=== PATIENT | female | born 1965 | race Two or more races ===

== ENCOUNTER 2018-06-16 20:31 | Emergency (ER) | payer MEDICAID, OTHER ==
[2018-06-16] MEDS ORDERED: NORMAL SALINE 1000 ML 1,000 ML IV ONE (20:53)
--- NOTE | 2018-06-16 20:56 | ER Document Report ---
ED General - General Stated Complaint: POSSIBLE INGESTION Time Seen by Provider: 06/16/18 20:45 Notes: Patient is a 53-year-old female comes emergency department for chief complaint of accidental ingestion. She comes by EMS, given Zofran and IV fluids. 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 She vomited 4 times. Patient states that otherwise she feels okay, she denies any areas of pain, denies chest pain, shortness of breath. She states that before eating the cookies she felt fine, denies any fevers, chills, or any other symptoms. Past medical history of type 2 diabetes, on metformin, no other medical history reported. Daughter Nicolasa at bedside, patient primarily [place]-speaking, patient requesting daughter to translate. - Related Data Allergies/Adverse Reactions: No Known Allergies Allergy (Unverified 06/16/18 21:51) Past Medical History - General Information source: Patient - Social History Smoking Status: Never Smoker Frequency of alcohol use: None Drug Abuse: None Lives with: Family Family History: Reviewed & Not Pertinent Endocrine Medical History: Reports: Hx Diabetes Mellitus Type 2 Surgical Hx: Negative - Immunizations Hx Diphtheria, Pertussis, Tetanus Vaccination: Yes Review of Systems - Review of Systems Constitutional: See HPI EENT: No symptoms reported Cardiovascular: No symptoms reported Respiratory: No symptoms reported Gastrointestinal: See HPI Genitourinary: No symptoms reported Female Genitourinary: No symptoms reported Musculoskeletal: No symptoms reported Skin: No symptoms reported Hematologic/Lymphatic: No symptoms reported Neurological/Psychological: See HPI Physical Exam - Vital signs Vitals: Resp 22 H 06/16/18 20:46 - Notes Notes: GENERAL: Patient with her eyes closed, opens her eyes when prompted, appears nauseated HEAD: Normocephalic, atraumatic. EYES: Pupils equal, round, and reactive to light. Extraocular movements intact. ENT: Oral mucosa dry, tongue midline. Patent airway. NECK: Full range of motion. Supple. Trachea midline. LUNGS: Clear to auscultation bilaterally, no wheezes, rales, or rhonchi. No respiratory distress. HEART: Regular rate and rhythm. No murmur ABDOMEN: Minimal generalized tenderness. Non-distended. Bowel sounds present in all 4 quadrants. EXTREMITIES: Moves all 4 extremities spontaneously. No edema, normal radial and dorsalis pedis pulses bilaterally. No cyanosis. BACK: no cervical, thoracic, lumbar midline tenderness. No saddle anesthesia, normal distal neurovascular exam. NEUROLOGICAL: Lethargic but arousable, oriented x3. Normal speech. [cranial nerves II through XII grossly intact]. SKIN: Warm, dry, normal turgor. No rashes or lesions noted. Course - Re-evaluation Re-evalutation: , Zofran did not help, she was given Reglan after QTC was checked and found to be normal. After Reglan her vomiting stopped. Patient tired but easily aroused. Given IV fluids and monitored. Reevaluated 3 more times. On the third time she is more alert, states she feels much better, would like to try eating something. CBC generally unremarkable, chemistry shows hyperglycemia without acidosis, venous blood gas unremarkable. Urinalysis shows dehydration, patient was hydrated. Chest x-ray unremarkable. EKG sinus rhythm with normal QTC and no acute abnormality. Urine drug screen shows marijuana. Suspect patient had a pot cookie. Patient tolerated fluids and then food well, asymptomatic, requesting to leave. Discussed workup, follow-up, return precautions. Discharge with work note. Discussed with family. They state understanding and agreement. - Vital Signs Vital signs: Temp Pulse Resp BP Pulse Ox 98.9 F 17 112/64 97 06/17/18 03:01 06/17/18 03:01 06/17/18 03:01 06/17/18 03:01 - Laboratory Result Diagrams: 06/16/18 21:03 06/16/18 21:03 Laboratory results interpreted by me: 06/16/18 06/16/18 06/16/18 20:56 21:03 21:03 Hct 35.9 L Creatinine 0.41 L Glucose 381 H POC Glucose 378 H Alkaline Phosphatase 143 H Urine Glucose (UA) Urine Ketones Salicylates < 1.0 L Acetaminophen < 10 L 06/16/18 23:34 Hct Creatinine Glucose POC Glucose Alkaline Phosphatase Urine Glucose (UA) >=500 H Urine Ketones TRACE H Salicylates Acetaminophen Discharge - Discharge Clinical Impression: Accidental ingestion of substance Qualifiers: Encounter type: initial encounter Qualified Code(s): T65.91XA - Toxic effect of unspecified substance, accidental (unintentional), initial encounter Vomiting Qualifiers: Vomiting type: unspecified Vomiting Intractability: non-intractable Nausea presence: with nausea Qualified Code(s): R11.2 - Nausea with vomiting, unspecified Condition: Stable Disposition: HOME, SELF-CARE Additional Instructions: Lamentablemente, la galleta que comiste antes kylie marihuana, wanda positivo por marihuana. La pantalla de drogas fue negativa de lo contrario. [place] los medicamentos para las nuseas si es necesario. [place]ordero nivel de azcar en la oz era alto hoy, esto necesita ser revisado con cuidado primario. Regrese a la ellyn de urgencias si algo no est clint: comienza a vomitar, a desmayarse, le charlene respirar o si algo no est clint. Forms: Return to Work
[2018-06-16] MEDS ORDERED: METOCLOPRAMIDE HCL INJ/PF 10 MG/2 ML SDV IV ONE (20:57)
[2018-06-16 21:13] LABS: ABSOLUTE EOSINOPHILS # (AUTO) 0.1 10^3/uL (0.0-0.6); ABSOLUTE LYMPHOCYTES (AUTO) 2.8 10^3/uL (0.5-4.7); ABSOLUTE MONOCYTES (AUTO) 0.5 10^3/uL (0.1-1.4); ABSOLUTE NEUT (AUTO) 4.7 10^3/uL (1.7-8.2); BASOPHILS % (AUTO) 0.5 % (0-2); HEMATOCRIT 35.9 % (36.0-47.0); HEMOGLOBIN 12.7 g/dL (12.0-15.5); LYMPHOCYTES % (AUTO) 34.2 % (13-45); MEAN CORPUSCULAR HEMOGLOBIN 29.9 pg (27.0-33.4); MEAN CORPUSCULAR HGB CONC 35.4 g/dL (32.0-36.0); MEAN CORPUSCULAR VOLUME 85 fl (80-97); MONOCYTES % (AUTO) 5.9 % (3-13); PLATELET COUNT 171 10^3/uL (150-450); RED BLOOD COUNT 4.24 10^6/uL (3.72-5.28); RED CELL DISTRIBUTION WIDTH 12.4 % (11.5-14.0); SEGMENTED NEUTROPHILS % (AUTO) 58.4 % (42-78); TOTAL CELLS COUNTED % (AUTO) 100 %; WHITE BLOOD COUNT 8.1 10^3/uL (4.0-10.5)
[2018-06-16 21:20] LABS: VENOUS BLOOD HCO3 25.5 mmol/L (20-32); VENOUS BLOOD PCO2 49.4 mmHg (35-63); VENOUS BLOOD PH 7.33 (7.30-7.42)
--- NOTE | 2018-06-16 21:27 | RADIOLOGY REPORT (SQ) ---
EXAM DESCRIPTION: CHEST SINGLE VIEW COMPLETED DATE/TIME: 06/16/2018 9:18 pm REASON FOR STUDY: ingestion, vomiting, ? aspiration COMPARISON: Chest x-ray 09/08/2007 EXAM PARAMETERS: NUMBER OF VIEWS: One view. TECHNIQUE: Single frontal radiographic view of the chest acquired. RADIATION DOSE: NA LIMITATIONS: None. FINDINGS: LUNGS AND PLEURA: No consolidation, pneumothorax or pleural effusion. MEDIASTINUM AND HILAR STRUCTURES: No masses. Contour normal. HEART AND VASCULAR STRUCTURES: Heart normal in size. Normal vasculature. BONES: No acute findings. HARDWARE: None in the chest. IMPRESSION: NO ACUTE RADIOGRAPHIC FINDING IN THE CHEST. TECHNICAL DOCUMENTATION: JOB ID: [id number] [employer]- All Rights Reserved Reading location - IP/workstation name: [email or web address]
[2018-06-16 21:34] LABS: ALANINE AMINOTRANSFERASE 34 U/L (9-52); ALBUMIN 3.7 g/dL (3.5-5.0); ALKALINE PHOSPHATASE 143 U/L (38-126); ANION GAP 12 (5-19); ASPARTATE AMINO TRANSFERASE 19 U/L (14-36); BILIRUBIN,DIRECT 0.2 mg/dL (0.0-0.4); BILIRUBIN,TOTAL 0.3 mg/dL (0.2-1.3); BLOOD UREA NITROGEN 12 mg/dL (7-20); CALCIUM 8.5 mg/dL (8.4-10.2); CARBON DIOXIDE 24 mmol/L (22-30); CHLORIDE 105 mmol/L (98-107); CREATINE KINASE 58 U/L (30-135); GLUCOSE 381 mg/dL (75-110); POTASSIUM 3.9 mmol/L (3.6-5.0); SODIUM 140.9 mmol/L (137-145); TOTAL PROTEIN 6.3 g/dL (6.3-8.2)
[2018-06-16 21:35] LABS: ACETAMINOPHEN < 10 ug/mL (10-30); ALCOHOL < 10 mg/dL (NONE DETECTED); SALICYLATE < 1.0 mg/dL (2.0-20.0)
[2018-06-16 23:52] LABS: APPEARANCE,URINE CLEAR; BILIRUBIN,URINE NEGATIVE (NEGATIVE); COLOR,URINE STRAW; GLUCOSE, URINE >=500 mg/dL (NEGATIVE); KETONES,URINE TRACE mg/dL (NEGATIVE); LEUKOCYTE ESTERASE,URINE NEGATIVE (NEGATIVE); NITRITE,URINE NEGATIVE (NEGATIVE); PROTEIN,URINE NEGATIVE (NEGATIVE); URINE SPECIFIC GRAVITY 1.035; UROBILINOGEN,URINE NEGATIVE mg/dL (<2.0)
[2018-06-17 00:07] LABS: URINE AMPHETAMINES SCREEN NEGATIVE; URINE BARBITURATES SCREEN NEGATIVE; URINE BENZODIAZEPINES SCREEN NEGATIVE; URINE COCAINE SCREEN NEGATIVE; URINE MARIJUANA (THC) SCREEN UNCONFIRMED POSITIVE; URINE METHADONE SCREEN NEGATIVE; URINE PHENCYCLIDINE SCREEN NEGATIVE
[2018-06-17] MEDS ORDERED: ONDANSETRON ODT 4 MG TAB (6 TAB/ER DISP) PO PRN (02:43)
[2018-06-17 03:17] VITALS: BP 112/64
--- NOTE | 2018-06-17 06:51 | EKG REPORT ---
SEVERITY:- NORMAL ECG - SINUS RHYTHM : Confirmed by: Narciso Vela 17-Jun-2018 06:50:41
== END 2018-06-17 03:17 | disposition home or self-care (01) ==
LOC: ER 20:31
DX: T65.91XA Toxic effect of unspecified substance, accidental (unintentional), initial encounter (principal); R11.2 Nausea with vomiting, unspecified; R10.817 Generalized abdominal tenderness; Y92.59 Other trade areas as the place of occurrence of the external cause; E86.0 Dehydration; E11.65 Type 2 diabetes mellitus with hyperglycemia; Z79.84 Long term (current) use of oral hypoglycemic drugs
CPT/HCPCS: 93005; 99284; 96361; 51701; 96374; 36415; 82962; 80307 ×4; 82550; 85025; 80053; 81001; 84484; 82803; 71045; 93010; J2765; J7030